=== PATIENT | male | born 1955 | race Caucasian/White ===

== ENCOUNTER 2017-06-11 09:11 | Inpatient (IN) | payer OTHER ==
[~2017-06-11] VITALS: Ht 177.8 cm; Wt 94.1 kg
[2017-06-11 10:20] LABS: BASOPHIL % 0.8 % (0-2); PLATELET COUNT 207 x10^3mcL (130-400)
[2017-06-11 10:24] LABS: RED CELL DISTRIBUTION WIDTH 15.3 % (11.5-14.5)
[2017-06-11 10:43] LABS: AMPHETAMINE QUAL UR NONE DETECTED (NEG <=1000)
[2017-06-11 11:28] LABS: CARBON DIOXIDE 27.2 mmol/L (21-32); CHLORIDE SERUM 101 mmol/L (98-107); CREATININE SERUM 0.9 mg/dL (0.7-1.3); GFR1 > 60 mL/min; GLUCOSE SERUM 123 mg/dL (74-106); POTASSIUM SERUM 3.9 mmol/L (3.5-5.1); SODIUM SERUM 136 mmol/L (136-145)
[2017-06-11 11:33] LABS: ALBUMIN 3.5 g/dL (3.4-5.0); ALKALINE PHOSPHATASE 79 U/L (46-116); ALT/SGPT 38 U/L (16-63); AST/SGOT 31 U/L (15-37); BILIRUBIN TOTAL 0.8 mg/dL (0.20-1.00); TOTAL PROTEIN, SERUM 6.7 g/dL (6.4-8.2)
[2017-06-11] MEDS ORDERED: SIMVASTATIN10 M1 (16:51)
[2017-06-11] MEDS ORDERED: LISINOPRIL2.5 MG (16:51)
[2017-06-11] MEDS ORDERED: CARVEDILOL3.125 M1 (16:51)
[2017-06-11] MEDS ORDERED: MULTI-VITAMINS1 TAB (16:52)
[2017-06-11] MEDS ORDERED: TRAZODONE50 M1 (16:52)
[2017-06-11] MEDS ORDERED: FLUOXETINE HCL1 POW (16:52)
[2017-06-11] MEDS ORDERED: ASPIR 8181 MG (16:52)
[2017-06-11 18:26] LABS: microscopic required? YES; urine erythrocyte NEGATIVE (NEGATIVE)
[2017-06-11 19:13] VITALS: BP 145/92
[2017-06-11 19:59] VITALS: BP 145/92
[2017-06-12 04:58] VITALS: BP 152/90
[2017-06-12 16:55] VITALS: BP 132/93
[2017-06-12 21:45] VITALS: BP 125/90; BP 145/90
== END 2017-06-12 22:50 | disposition left against medical advice (07) | DRG 751 ==
LOC: ED 09:11 → MU 16:49 → DU 16:49 → MU 06-12 10:06
PROVIDERS: Emergency Medicine; ADMIT Family Medicine
DX: F33.2 Major depressive disorder, recurrent severe without psychotic features (principal); N17.0 Acute kidney failure with tubular necrosis; R45.851 Suicidal ideations; I10 Essential (primary) hypertension; G47.00 Insomnia, unspecified; E78.5 Hyperlipidemia, unspecified; F10.20 Alcohol dependence, uncomplicated; Z68.29 Body mass index [BMI] 29.0-29.9, adult
CPT/HCPCS: G0480; J2060; J7030; Q0092

== ENCOUNTER 2017-09-19 20:12 | Inpatient (IN) | payer OTHER ==
[~2017-09-19] VITALS: Ht 177.8 cm; Wt 87.2 kg
[~2017-09-19 20:12] MED LIST: ASPIR 8181 MG; CARVEDILOL3.125 M1; FLUOXETINE HCL1 POW; LISINOPRIL2.5 MG; MULTI-VITAMINS1 TAB; SIMVASTATIN10 M1; TRAZODONE50 M1
[2017-09-20] VITALS (7 sets, daily range): BP systolic 115–151; BP diastolic 72–105
[2017-09-20 01:12] LABS: BASOPHIL % 0.2 % (0-2); PLATELET COUNT 206 x10^3mcL (130-400); RED CELL DISTRIBUTION WIDTH 14.2 % (11.5-14.5)
[2017-09-20 01:20] LABS: CALCIUM 8.7 mg/dL (8.5-10.1); CHLORIDE SERUM 96 mmol/L (98-107); CREATININE SERUM 1.1 mg/dL (0.7-1.3); GFR1 > 60 mL/min; GLUCOSE SERUM 115 mg/dL (74-106); POTASSIUM SERUM 4.2 mmol/L (3.5-5.1); SODIUM SERUM 136 mmol/L (136-145)
[2017-09-20 01:28] LABS: ALBUMIN 3.7 g/dL (3.4-5.0); ALKALINE PHOSPHATASE 86 U/L (46-116); ALT/SGPT 57 U/L (16-63); AST/SGOT 63 U/L (15-37); LIPASE 234 IU/L (73-393); TOTAL PROTEIN, SERUM 7.5 g/dL (6.4-8.2)
[2017-09-20] MEDS ORDERED: CORE25 (02:28)
[2017-09-20] MEDS ORDERED: LISINOPRIL20 MG PO (02:28)
[2017-09-20] MEDS ORDERED: SIMVASTATIN20 M1 PO (02:29)
[2017-09-20] MEDS ORDERED: FLUOXETINE40 MG (02:30)
[2017-09-20] MEDS ORDERED: TRAZODONE50 M1 PO (02:31)
[2017-09-20] MEDS ORDERED: ASPIRIN ADULT L81 M5 PO (02:31)
[2017-09-20 03:31] LABS: PHOSPHOROUS 2.1 mg/dL (2.5-4.9)
[2017-09-20 03:32] LABS: CHOLESTEROL/HDL RATIO 3.2
[2017-09-20 04:28] LABS: FREE THYROXINE INDEX 2.7 ug/dL (1.4-4.5); T4(THYROXINE) 6.9 ug/dL (4.7-13.3)
[2017-09-20 04:46] LABS: UA SPECIFIC GRAVITY >=1.030 (1.005-1.035); microscopic required? YES; urine erythrocyte 2+ (NEGATIVE)
[2017-09-20 04:49] LABS: T3 TOTAL 0.68 ng/mL
[2017-09-20 05:10] LABS: AMPHETAMINE QUAL UR NONE DETECTED (NEG <=1000)
[2017-09-20 12:25] LABS: BASOPHIL % 0.6 % (0-2); PLATELET COUNT 177 x10^3mcL (130-400); RED CELL DISTRIBUTION WIDTH 14.3 % (11.5-14.5)
[2017-09-20 12:35] LABS: CALCIUM 8.5 mg/dL (8.5-10.1); CARBON DIOXIDE 25.2 mmol/L (21-32); CHLORIDE SERUM 101 mmol/L (98-107); CREATININE SERUM 0.9 mg/dL (0.7-1.3); GFR1 > 60 mL/min; GLUCOSE SERUM 98 mg/dL (74-106); SODIUM SERUM 137 mmol/L (136-145)
[2017-09-21 05:38] VITALS: BP 118/79
[2017-09-21 07:09] LABS: BASOPHIL % 0.8 % (0-2); PLATELET COUNT 133 x10^3mcL (130-400)
[2017-09-21 07:33] LABS: CALCIUM 8.6 mg/dL (8.5-10.1); CARBON DIOXIDE 26.5 mmol/L (21-32); CHLORIDE SERUM 103 mmol/L (98-107); CREATININE SERUM 0.7 mg/dL (0.7-1.3); GFR1 > 60 mL/min; GLUCOSE SERUM 96 mg/dL (74-106); PHOSPHOROUS 1.9 mg/dL (2.5-4.9); POTASSIUM SERUM 3.4 mmol/L (3.5-5.1); SODIUM SERUM 135 mmol/L (136-145)
[2017-09-21 08:45] VITALS: BP 112/80
[2017-09-21 13:00] VITALS: BP 95/51
[2017-09-21 18:31] VITALS: BP 112/73
[2017-09-21 23:01] VITALS: BP 112/81
[2017-09-22 06:36] VITALS: BP 148/88
[2017-09-22 08:27] VITALS: BP 142/91
[2017-09-22] MEDS ORDERED: ATIVAN0.5 M1 PO (11:02)
[2017-09-22 11:24] VITALS: Ht 177.8 cm; Wt 87.2 kg
[2017-09-22 17:10] VITALS: BP 124/81
[2017-09-22 21:53] VITALS: BP 134/96
[2017-09-23 04:58] VITALS: BP 121/89
[2017-09-23 09:00] VITALS: BP 111/75
[2017-09-23] MEDS ORDERED: NPHOS PO (10:42)
[2017-09-23] MEDS ORDERED: LIPI20 PO (10:42)
[2017-09-23] MEDS ORDERED: FOL1 PO (10:42)
[2017-09-23] MEDS ORDERED: THI100 PO (10:42)
[2017-09-23] MEDS ORDERED: THERAGRAN-M1 TA4 PO (10:42)
[2017-09-23 11:09] VITALS: BP 111/75
== END 2017-09-23 12:04 | disposition home or self-care (01) | DRG 816 ==
LOC: ED 20:12 → DU 09-20 02:16 → MU 09-20 02:16 → DU 09-20 03:59 → MU 09-22 08:01
PROVIDERS: Emergency Medicine; Student in an Organized Health Care Education/Training Program
DX: T51.0X1A Toxic effect of ethanol, accidental (unintentional), initial encounter (principal); N17.0 Acute kidney failure with tubular necrosis; G92 Toxic encephalopathy; F10.221 Alcohol dependence with intoxication delirium; I42.4 Endocardial fibroelastosis; F10.231 Alcohol dependence with withdrawal delirium; E87.2 Acidosis; F31.4 Bipolar disorder, current episode depressed, severe, without psychotic features; E83.39 Other disorders of phosphorus metabolism; E86.0 Dehydration; R82.4 Acetonuria; N28.1 Cyst of kidney, acquired; R31.9 Hematuria, unspecified; J44.9 Chronic obstructive pulmonary disease, unspecified; I10 Essential (primary) hypertension; R74.0 Nonspecific elevation of levels of transaminase and lactic acid dehydrogenase [LDH]; G47.00 Insomnia, unspecified; D64.9 Anemia, unspecified; E78.5 Hyperlipidemia, unspecified; F17.210 Nicotine dependence, cigarettes, uncomplicated; Z68.30 Body mass index [BMI] 30.0-30.9, adult; Z79.82 Long term (current) use of aspirin; Z91.19 Patient's noncompliance with other medical treatment and regimen; Y90.6 Blood alcohol level of 120-199 mg/100 ml; Y92.009 Unspecified place in unspecified non-institutional (private) residence as the place of occurrence of the external cause
CPT/HCPCS: 83880; 84439; G0480; J2060; J2405; J7030; J7040; J7620; Q0092